=== PATIENT | female | born 1960 | race Native Hawaiian/Other Pacific Islander ===

== ENCOUNTER 2017-10-27 09:30 | Outpatient (CLI) | payer OTHER | END 2017-10-27 19:44 | disposition home or self-care (01) | LOC: US 09:30 | DX: R42 Dizziness and giddiness (principal); R53.83 Other fatigue ==

== ENCOUNTER → 2020-06-08 | Outpatient (CLI) | payer OTHER | LOC: INF 15:42 | PROVIDERS: ATTEND Internal Medicine | DX: Z23 Encounter for immunization (principal) | CPT/HCPCS: 96372 ==

== ENCOUNTER 2020-07-02 09:11 | Outpatient (CLI) | payer OTHER | END 2020-07-02 23:59 | disposition home or self-care (01) | LOC: INF 09:11 | PROVIDERS: ATTEND Internal Medicine | DX: Z23 Encounter for immunization (principal) | CPT/HCPCS: 96372 ==

== ENCOUNTER 2020-10-20 11:09 | Outpatient (CLI) | payer OTHER | END 2020-10-20 21:36 | disposition home or self-care (01) | LOC: RAD 11:09 | PROVIDERS: ATTEND Nurse Practitioner Family | DX: S39.012A Strain of muscle, fascia and tendon of lower back, initial encounter (principal); X58.XXXA Exposure to other specified factors, initial encounter; Y93.9 Activity, unspecified; Y92.9 Unspecified place or not applicable ==

== ENCOUNTER 2022-05-06 05:32 | Outpatient (CLI) | payer BC ==
[2022-05-06 06:02] LABS: PLATELET COUNT 203 K/uL (152-353)
[2022-05-06 06:19] LABS: POTASSIUM 4.4 mmol/L (3.6-5.2)
== END 2022-05-06 19:48 | disposition home or self-care (01) ==
LOC: LABW 05:32
PROVIDERS: ATTEND Nurse Practitioner Family
DX: I10 Essential (primary) hypertension (principal); E78.49 Other hyperlipidemia; E11.9 Type 2 diabetes mellitus without complications; R82.998 Other abnormal findings in urine
CPT/HCPCS: 36415; 80053; 80061; 81000; 82043; 83036; 84439; 84443; 85027; 87086; 87088